=== PATIENT | female | born 2005 | race Caucasian/White ===

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

== ENCOUNTER 2024-05-03 08:39 | Emergency (ER) | payer OTHER ==
[2024-05-03] MEDS ORDERED: Sodium Chloride 0.9% 10 ML Syringe FLUSH PRN (09:19)
[2024-05-03] MEDS ORDERED: Sodium Chloride 0.9% 2.5 ML Syringe FLUSH PRN (09:19)
[2024-05-03 09:40] LABS: BASOPHILS ABSOLUTE AUTO 0.03 K/uL (0.00-0.20); BASOPHILS PERCENT AUTO 0.6 % (0.0-1.0); EOSINOPHILS ABSOLUTE AUTO 0.05 K/uL (0.00-0.45); HEMOGLOBIN 11.6 g/dL (12.0-16.0); IMMATURE GRAN ABSOLUTE AUTO 0.01 K/uL (0.00-0.05); IMMATURE GRAN PERCENT AUTO 0.2 % (0.0-0.4); LYMPHOCYTES ABSOLUTE AUTO 1.57 K/uL (1.00-4.80); LYMPHOCYTES PERCENT AUTO 30.3 % (24.0-44.0); MEAN CORPUSCULAR HEMOGLOBIN 28.4 pg (28.0-32.0); MEAN CORPUSCULAR HGB CONC 34.1 g/dL (32.0-36.0); MEAN CORPUSCULAR VOLUME 83.3 fL (83.0-99.0); MEAN PLATELET VOLUME 9.1 fL (9.4-12.3); MONOCYTES ABSOLUTE AUTO 0.28 K/uL (0.00-0.80); MONOCYTES PERCENT AUTO 5.4 % (0.0-8.0); NEUTROPHILS ABSOLUTE AUTO 3.25 K/uL (1.80-7.70); NEUTROPHILS PERCENT AUTO 62.5 % (41.0-71.0); PLATELET COUNT,PLT 233 K/uL (150-400); RED BLOOD CELL COUNT 4.08 M/uL (4.10-5.30); WHITE BLOOD CELL COUNT,WBC 5.19 K/uL (3.9-11.3)
[2024-05-03 10:25] LABS: A/G RATIO 1.3 (0.9-1.6); ALBUMIN 3.8 g/dL (3.4-5.0); BILIRUBIN TOTAL 0.4 mg/dL (0.2-1.0); CALCIUM 8.5 mg/dL (8.5-10.1); CARBON DIOXIDE,CO2 23.4 mmol/L (21.0-32.0); CREATININE 0.6 mg/dL (0.6-1.0); EST CRCL DRUG DOSING (CG) 122.69 mL/min; POTASSIUM,K 3.8 mmol/L (3.5-5.1); PROTEIN TOTAL,TP 6.8 g/dL (6.4-8.2)
[2024-05-03 10:34] LABS: APPEARANCE,URINE CLEAR; BILIRUBIN,URINE NEGATIVE (NEGATIVE); COLOR,URINE YELLOW; GLUCOSE,URINE NEGATIVE (NEGATIVE); KETONES,URINE NEGATIVE (NEGATIVE); LEUKOCYTE ESTERASE,URINE NEGATIVE (NEGATIVE); NITRITE,URINE NEGATIVE (NEGATIVE); OCCULT BLOOD,URINE NEGATIVE (NEGATIVE); PH,URINE 6.5 (5.0-8.0); PROTEIN,URINE NEGATIVE (NEGATIVE); UROBILINOGEN,URINE 0.2 EU/dL (<2.0)
== END 2024-05-03 11:27 | disposition home or self-care (01) ==
LOC: MW.ED 08:39
DX: O99.891 Other specified diseases and conditions complicating pregnancy (principal); R10.30 Lower abdominal pain, unspecified; Z90.89 Acquired absence of other organs; Z87.891 Personal history of nicotine dependence; Z3A.01 Less than 8 weeks gestation of pregnancy
CPT/HCPCS: 36415; 73130-26-LT; 73130-LT; 76801; 76801-26; 80053; 81003; 84702; 85025; 86900; 86901; 99283; 99284

== ENCOUNTER 2024-12-24 00:05 | Inpatient (IN) | payer OTHER, MEDICAID ==
[2024-12-24] MEDS ORDERED: Methylergonovine 0.2 MG/1 ML Amp IM PRN (00:13)
[2024-12-24] MEDS ORDERED: Sodium Chloride 0.9% 2.5 ML Syringe FLUSH PRN (00:13)
[2024-12-24] MEDS ORDERED: Sodium Chloride 0.9% 20 ML SDV IV PRN (00:13)
[2024-12-24] MEDS ORDERED: Lidocaine 1% 50 ML MDV INJECT PRN (00:13)
[2024-12-24] MEDS ORDERED: Ondansetron 4 MG/2 ML SDV IVPUSH PRN (00:13)
[2024-12-24] MEDS ORDERED: Sodium Chloride 0.9% 10 ML Syringe FLUSH PRN (00:13)
[2024-12-24] MEDS ORDERED: Misoprostol 200 MCG Tab PO PRN (00:13)
[2024-12-24] MEDS ORDERED: Carboprost Tromethamine 250 MCG/1 mL Vial IM PRN (00:13)
[2024-12-24] MEDS ORDERED: Butorphanol 1 MG/ML SDV IVPUSH PRN (00:13)
[2024-12-24] MEDS ORDERED: Water For Irrigation,Sterile 1,000 ML Container IRR PRN (00:13)
[2024-12-24] MEDS ORDERED: Oxytocin/0.9 % Sodium Chloride 30 UNIT/500 ML BAG IV SCH ×2 (00:15→00:30)
[2024-12-24] MEDS ORDERED: Misoprostol 25 MCG (1/4 of 100 MCG) Tab VAG PRN (00:16)
[2024-12-24] MEDS ORDERED: Terbutaline 1 MG/ML SDV SUBCUT PRN (00:16)
[2024-12-24] MEDS: Lactated Ringers 1,000 ML IV SCH (00:50)
[2024-12-24 01:19] LABS: HEMATOCRIT 29.5 % (37.0-47.0); HEMOGLOBIN 9.6 g/dL (12.0-16.0); MEAN CORPUSCULAR HEMOGLOBIN 25.8 pg (28.0-32.0); MEAN CORPUSCULAR HGB CONC 32.5 g/dL (32.0-36.0); MEAN CORPUSCULAR VOLUME 79.3 fL (83.0-99.0); MEAN PLATELET VOLUME 9.7 fL (9.4-12.3); PLATELET COUNT,PLT 254 K/uL (150-400); RED BLOOD CELL COUNT 3.72 M/uL (4.10-5.30); WHITE BLOOD CELL COUNT,WBC 9.04 K/uL (3.9-11.3)
[2024-12-24] MEDS: Misoprostol 25 MCG (1/4 of 100 MCG) Tab PO PRN (01:56)
[2024-12-24] MEDS: Misoprostol 25 MCG (1/4 of 100 MCG) Tab VAG PRN (01:56)
[2024-12-24] MEDS ORDERED: Misoprostol 25 MCG (1/4 of 100 MCG) Tab PO PRN (02:04)
[2024-12-24] MEDS ORDERED: Phenylephrine HCl In 0.9% NaCl 1 MG/10 ML Syringe IVPUSH PRN (16:06)
[2024-12-24] MEDS ORDERED: ePHEDrine 50 MG/ML SDV IVPUSH PRN (16:06)
[2024-12-24] MEDS ORDERED: Ropivacaine HCl/PF 400 MG in Premix Bag 1 BAG EPIDUR SCH (16:15)
[2024-12-24] MEDS ORDERED: dexmedeTOMIDine HCl 200 MCG/2 ML SDV EPIDUR SCH (16:15)
[2024-12-24] MEDS: Ropivacaine HCl/PF 200 ML ONE (18:35)
[2024-12-24] MEDS: dexmedeTOMIDine HCl 200 MCG/2 ML SDV ONE (18:35)
[2024-12-24] MEDS: Phenylephrine HCl In 0.9% NaCl 1 MG/10 ML Syringe ONE (18:35)
[2024-12-24] MEDS: Bupivacaine 0.5% 10 ML SDV ONE (18:36)
[2024-12-24] MEDS: Oxytocin/0.9 % Sodium Chloride 30 UNIT/500 ML BAG IV SCH (18:51)
[2024-12-25] MEDS ORDERED: Lanolin 100% Cream 7 GM Tube TOP PRN (03:07)
[2024-12-25] MEDS ORDERED: Docusate Sodium 100 MG Cap PO PRN (03:07)
[2024-12-25 03:13] LABS: PH,UMBILICAL ARTERIAL 7.2 (7.18-7.38); PH,UMBILICAL VENOUS 7.32 (7.25-7.45)
[2024-12-25] MEDS: Benzocaine/Menthol 20%-0.5% Spray 78 GM Cannister TOP PRN (04:48)
[2024-12-25] MEDS: Ibuprofen 800 MG Tab PO PRN (04:49)
[2024-12-25] MEDS: Witch Hazel Medicated Pads 40/Jar TOP PRN (04:49)
[2024-12-25] MEDS: Acetaminophen 500 MG Tab PO PRN (04:50)
[2024-12-26 05:27] LABS: HEMATOCRIT 30.1 % (37.0-47.0); HEMOGLOBIN 9.5 g/dL (12.0-16.0)
== END 2024-12-26 14:20 | disposition home or self-care (01) | DRG 807 ==
LOC: MW.OBCHECK 00:05 → INTOOBSV 00:06 → UNDOADMOB 00:06 → OBSVTOIN 00:06 → MW.OB 00:06 → OBSVTOIN 12-25 02:01 → MW.OB 12-25 02:01
PROVIDERS: ADMIT Obstetrics & Gynecology Obstetrics; ATTEND Obstetrics & Gynecology Obstetrics
PROC: 10E0XZZ Delivery of Products of Conception, External Approach (ICD-10-PCS; principal; 2024-12-25)
PROC: 3E0R3BZ Introduction of Anesthetic Agent into Spinal Canal, Percutaneous Approach (ICD-10-PCS; 2024-12-25)
DX: O48.0 Post-term pregnancy (principal); Z37.0 Single live birth; Z3A.40 40 weeks gestation of pregnancy; Z90.49 Acquired absence of other specified parts of digestive tract; Z79.899 Other long term (current) drug therapy
CPT/HCPCS: 01967; 36415; 51702; 59025; 82803; 85014; 85018; 85027; 86592; 86850; 86900; 86901; A9270-GY; J0665; J2590; J2795; J7120